=== PATIENT | female | born 1975 | race Caucasian/White ===

== ENCOUNTER 2016-12-05 11:57 | Emergency (ER) | payer OTHER ==
[2016-12-05] MEDS ORDERED: METOCLOPRAMIDE 10 MG/2 ML VIAL ONE (14:13)
[2016-12-05] MEDS ORDERED: DIPHENHYDRAMINE 50 MG/ML VIAL ONE (14:13)
[2016-12-05] MEDS ORDERED: KETOROLAC 30 MG/ML VIAL ONE (14:13)
== END 2016-12-05 15:55 | disposition home or self-care (01) ==
LOC: ER 11:57
DX: S16.1XXA Strain of muscle, fascia and tendon at neck level, initial encounter (principal); M50.30 Other cervical disc degeneration, unspecified cervical region; R51 Headache
CPT/HCPCS: 36415; 70450; 72125; 80053; 85025; 85652; 96374; 96375; 99284; J1885